=== PATIENT | male | born 1990 | race Two or more races ===

== ENCOUNTER 2018-11-10 13:22 | Emergency (ER) | payer MEDICAID ==
[~2018-11-10] VITALS: Ht 167.6 cm; Wt 68.5 kg
[2018-11-10] MEDS ORDERED: RISPERIDONE 1MG TABLET PO SCH (14:00)
[2018-11-10 18:38] VITALS: BP 140/87
== END 2018-11-10 19:14 | disposition home or self-care (01) ==
LOC: ER 13:22
DX: Z76.0 Encounter for issue of repeat prescription (principal); F20.9 Schizophrenia, unspecified; R03.0 Elevated blood-pressure reading, without diagnosis of hypertension; Z62.890 Parent-child estrangement NEC; Z72.0 Tobacco use
CPT/HCPCS: 99283; Z7610